=== PATIENT | male | born 1990 | race Hispanic/Latino ===

== ENCOUNTER 2018-05-14 10:44 | Emergency (ER) | payer SELFPAY ==
[2018-05-14 10:56] VITALS: BP 132/72; PULSE 81; RESP 18; TEMP 98.8; O2SAT 100
--- NOTE | 2018-05-14 12:24 | ED PDOC ---
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 Patient states last night he received a letter from his former employer that his medical insurance was terminated. He called the insurance company and was informed he has not had coverage since February due to missed payments. Patient then got involved in a verbal altercation and out of frustration, expressed suicidal ideation. The insurance healthcare consultant called the police who then sent the EMS to the patient's location. Patient admits to a history of anxiety and depression but states he has no active suicidal or homicidal ideation, he has no suicidal attempts in the past as well. He has no physical complaints at present. Denies auditory or visual hallucinations. PMD: [place] Past Medical History Reviewed: Historical Data, Nursing Documentation, Vital Signs Vital Signs: Last Vital Signs Temp 98.8 F 05/14/18 10:52 Pulse 81 05/14/18 10:52 Resp 18 05/14/18 10:52 BP 132/72 05/14/18 10:52 Pulse Ox 100 05/14/18 10:52 - Medical History PMH: Anxiety, Depression - Surgical History Surgical History: No Surg Hx - Family History Family History: States: No Known Family Hx - Social History Current smoker - smoking cessation education provided: No Ex-Smoker (has not smoked in the last 12 months): No Alcohol: Social Drugs: Cannabis - Home Medications Home Medications: Ambulatory Orders Medication Instructions Recorded Atomoxetine HCl [Strattera] 40 mg PO DAILY 05/14/18 DULoxetine [Cymbalta] 30 mg PO DAILY 05/14/18 clonazePAM [Klonopin] 2 mg PO DAILY 05/14/18 - Allergies Allergies/Adverse Reactions: Allergies Allergy/AdvReac Type Severity Reaction Status Date / Time No Known Allergies Allergy Verified 05/14/18 10:52 Review of Systems ROS Statement: Except As Marked, All Systems Reviewed And Found Negative Psych: Negative for: Suicidal ideation Physical Exam - Reviewed Nursing Documentation Reviewed: Yes Vital Signs Reviewed: Yes - Physical Exam Appears: Positive for: Well, Non-toxic, No Acute Distress Head Exam: Positive for: ATRAUMATIC, NORMOCEPHALIC Skin: Positive for: Normal Color, Warm, Dry Eye Exam: Positive for: EOMI ENT: Positive for: Other (Airway patent, (-) stridor. Mucus membranes moist.) Neck: Positive for: Painless ROM, Supple Cardiovascular/Chest: Positive for: Regular Rate, Rhythm Respiratory: Positive for: Normal Breath Sounds. Negative for: Decreased Breath Sounds, Accessory Muscle Use, Respiratory Distress Gastrointestinal/Abdominal: Positive for: Soft. Negative for: Tenderness, Distended, Guarding Back: Positive for: Normal Inspection. Negative for: Vertebral Tenderness Extremity: Positive for: Normal ROM. Negative for: Deformity Neurologic/Psych: Positive for: Alert, Oriented (x3), Mood/Affect (calm and cooperative), Gait (steady in ED). Negative for: Motor/Sensory Deficits, Aphasia, Facial Droop - ECG O2 Sat by Pulse Oximetry: 100 (RA) Pulse Ox Interpretation: Normal Medical Decision Making Medical Decision Making: Impression: Psychiatric evaluation Plan: -- Crisis evaluation -- Re-evaluation 1255 Per crisis evaluation, patient to be discharged per Dr Antonio with the diagnosis of Depression. On re-evaluation, patient offers no complaints. On exam, patient remains AAOx3, in no acute distress. Lungs clear to auscultation, cardiac RRR, repeat neuro exam shows no focal findings. VSS, stable for discharge. Lab/Diagnostic results d/w the patient in great detail. Diagnosis of depression d/w the patient. Based on history and exam, plan will be for outpatient follow up. Patient instructed to follow-up with pmd / referral provided / the clinic in 1- 2 days without fail. Return to the emergency room at any time for any new or worsening symptoms. Patient states he fully agrees with and understands discharge instructions. States that he agrees with the plan and disposition. Verbalized and repeated discharge instructions and plan. I have given the patient opportunity to ask any additional questions. Scribe Attestation: Documented by Thania Serna, acting as a scribe for KAREN Carrasco. Provider Scribe Attestation: All medical record entries made by the Scribe were at my direction and personally dictated by me. I have reviewed the chart and agree that the record accurately reflects my personal performance of the history, physical exam, medical decision making, and the department course for this patient. I have also personally directed, reviewed, and agree with the discharge instructions and disposition. Disposition - Clinical Impression Clinical Impression: Depression - Patient ED Disposition Is Patient to be Admitted: No Counseled Patient/Family Regarding: Diagnosis, Need For Followup - Disposition Referrals: [facility] [Outside] Disposition: Routine/Home Disposition Time: 13:00 Condition: STABLE Additional Instructions: FOLLOW UP WITH PMD FOR FURTHER EVALUATION The emergency medical care you received today was directed at your acute symptoms. If you were prescribed any medication, please fill it and take as directed. It may take several days for your symptoms to resolve. Return to the Emergency Department if your symptoms worsen, do not improve, or if you have any other problems. Please contact your doctor in 2 days for re-evaluation and follow up / or call one of the physicians/clinics you have been referred to that are listed on the Patient Visit Information form that is included in your discharge packet. Bring any paperwork you were given at discharge with you along with any medications you are taking to your follow up visit. Our treatment cannot replace ongoing medical care by a primary care provider (PCP) outside of the emergency department. Instructions: Depression, Tips for How to Help Your Mood Forms: [facility] (Frisian) Print Language: MOSOT[place] - POA Present On Arrival: None
== END 2018-05-14 13:14 | disposition home or self-care (01) ==
LOC: H.ER 10:44
DX: F32.9 Major depressive disorder, single episode, unspecified (principal)